=== PATIENT | female | born 2000 | race Hispanic/Latino ===

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

== ENCOUNTER 2023-06-01 15:29 | Outpatient (CLI) | payer BC, OTHER ==
[2023-06-01 16:38] LABS: #Eosinphils 0.1 10x3/uL (0.0-0.5); #Monocytes 0.6 10x3/uL (0.0-1.1); %Basophils 0.4 % (0.0-2.0); %Eosinophils 1.1 % (0.0-6.0); %Lymphocytes 32.4 % (18.0-47.0); %Monocytes 6.5 % (0.0-10.0); %Neutrophils 59.1 % (40.0-75.0); Hemoglobin 12.6 g/dL (12.0-15.5); Mean Corpuscular HGB CONC 33.2 g/dL (32.0-36.0); Mean Corpuscular Hemoglobin 30.9 pg (27.0-33.0); Mean Corpuscular Volume 93.1 fl (81.6-98.3); Mean Platelet Volume 10.1 fl (7.4-10.4); Platelet Count 316 10x3/uL (150-450); Red Blood Cell (RBC) Count 4.08 10x6/uL (3.90-5.03); White Blood Cell (WBC) Count 8.4 10x3/uL (3.5-10.5)
[2023-06-01 16:58] LABS: ALT (SGPT) 9 U/L (8-55); AST (SGOT) 14 U/L (5-34); Albumin 4.5 g/dL (3.5-5.0); Alkaline Phosphatase 59 U/L (40-110); Bilirubin, Direct 0.2 mg/dL (0.1-0.3); Bilirubin, Total 0.5 mg/dL (0.2-1.2); Protein, Total 7.2 g/dL (6.0-8.3)
[2023-06-01 17:04] LABS: BHCG - Serum Negative (NEGATIVE); Pregs Control Bar Appear? YES (CONTROL BAR)
[2023-06-01 17:05] LABS: Pregs Control Background? CLEAR/WHITE (CLR/WHITE)
== END 2023-06-01 15:30 | disposition home or self-care (01) ==
LOC: LABBT 15:29
PROVIDERS: ATTEND Surgery
DX: Z01.812 Encounter for preprocedural laboratory examination (principal); K80.20 Calculus of gallbladder without cholecystitis without obstruction
CPT/HCPCS: 80076; 84703; 85025

== ENCOUNTER 2023-06-08 11:10 | Day surgery (SDC) | payer BC, OTHER ==
[2023-06-01 15:56] VITALS: BMI 21.9
[2023-06-08] MEDS ORDERED: fentaNYL 50 mcg/mL 1 mL Vial ONE ×4 (11:48→15:46)
[2023-06-08] MEDS ORDERED: fentaNYL PF 100 MCG/2 ML SYRINGE ONE (11:48)
[2023-06-08] MEDS ORDERED: Bupivacaine 0.25% HCL 30 ML VIAL ONE (12:39)
[2023-06-08] MEDS ORDERED: Indocyanine Green 25 MG/10 ML VIAL ONE (12:39)
[2023-06-08] MEDS ORDERED: EPINEPHrine 1 MG/ML AMP ONE (12:39)
[2023-06-08] MEDS ORDERED: Sodium Chloride 0.9% 100 ML ONE (12:50)
[2023-06-08] MEDS ORDERED: cefOXitin 2 GM VIAL ONE (12:50)
[2023-06-08] MEDS ORDERED: Midazolam HCl 2 mg/2 ml Vial ONE ×2 (12:51→14:09)
[2023-06-08] MEDS ORDERED: Lidocaine 1% PF 5 ML VIAL ONE (13:11)
[2023-06-08] MEDS ORDERED: Ondansetron PF 4 MG/2 ML Vial ONE (13:11)
[2023-06-08] MEDS ORDERED: PROPOFOL 200 MG/20 ML VIAL ONE (13:11)
[2023-06-08] MEDS ORDERED: Dexamethasone 20 MG/5 ML VIAL ONE (13:11)
[2023-06-08] MEDS ORDERED: Succinylcholine 200 MG/10 ml SYRINGE FS ONE (13:11)
[2023-06-08] MEDS ORDERED: Rocuronium Bromide 10 MG/ML (10ML VIAL) ONE (13:11)
[2023-06-08] MEDS ORDERED: Meperidine HCl/PF 25 MG/ML VIAL ONE (14:32)
[2023-06-08] MEDS ORDERED: HYDROcodone/Acetaminophen 5/325 mg Tablet ONE (15:34)
== END 2023-06-08 16:15 | disposition home or self-care (01) ==
LOC: SDC 11:10
PROVIDERS: ATTEND Surgery
PROC: 0FT44ZZ Resection of Gallbladder, Percutaneous Endoscopic Approach (ICD-10-PCS; principal; 2023-06-08)
DX: K80.10 Calculus of gallbladder with chronic cholecystitis without obstruction (principal)
CPT/HCPCS: 88304; J0171; J0694; J1100; J2175; J2250; J2405; J2704; J3010; J3490; S0020